=== PATIENT | female | born 1980 | race Caucasian/White ===

== ENCOUNTER 2017-07-26 18:16 | Emergency (ER) | payer MEDICAID ==
[2017-07-26 18:22] VITALS: TEMP 98.3
[2017-07-26 18:23] VITALS: BMI 45.8
[2017-07-26] MEDS ORDERED: Albuterol-Ipratrop 3 mg / 0.5 (3 ml) UD IH STA (18:42)
--- NOTE | 2017-07-26 18:48 | ED PDOC ---
Arrival/HPI - General Chief Complaint: Shortness Of Breath Time Seen by Provider: 07/26/17 18:34 Historian: Patient - History of Present Illness Narrative History of Present Illness (Text): 07/26/17 18:44 Patient with past medical history of asthma, complains of 2 day history of cough productive of green sputum and SOB, reports using her inhaler and her nebulizer prior to arrival and reports improvement of shortness of breath. Patient states that she had similar symptoms 1 month ago and was treated with antibiotics by her pmd. Otherwise: (-) fever, (-) chills, (-) chest pain, (-) dyspnea, (-) hemoptysis, (-) upper back pain, (-) travel, (-) recent prolonged immobility. Past Medical History - Provider Review Nursing Documentation Reviewed: Yes - Infectious Disease Hx of Infectious Diseases: None - Past Medical History Past Medical History: No Previous - Pulmonary Hx Asthma: Yes - Psychiatric Hx Substance Use: No - Past Surgical History Past Surgical History: No Previous - Anesthesia Hx Anesthesia: No - Suicidal Assessment Feels Threatened In Home Enviroment: No Family/Social History - Physician Review Nursing Documentation Reviewed: Yes Family/Social History: No Known Family HX Smoking Status: Never Smoked Hx Alcohol Use: No Hx Substance Use: No Allergies/Home Meds Allergies/Adverse Reactions: Allergies No Known Allergies Allergy (Verified 03/09/16 08:55) Home Medications: Home Meds Medication Instructions Recorded Confirmed Albuterol HFA [Ventolin HFA 90 1 puff IH PRN PRN 07/26/17 07/26/17 mcg/actuation (8 g)] Review of Systems - Review of Systems Constitutional: Normal. absent: Fatigue, Weight Change, Fevers ENT: Normal. absent: Hearing Changes, Sore Throat, Rhinorrhea, Sinus Congestion Respiratory: Normal, SOB, Cough, Sputum, Wheezing Cardiovascular: Normal. absent: Chest Pain, Palpitations, Edema Musculoskeletal: Normal. absent: Arthralgias, Back Pain, Neck Pain Skin: Normal. absent: Rash, Pruritis, Skin Lesions Neurological: Normal. absent: Headache, Dizziness, Focal Weakness Physical Exam - Physical Exam Narrative Physical Exam (Text): 07/26/17 18:48 GENERAL APPEARANCE: Patient is awake, alert, oriented x 3, in no acute distress. Patient speaking in full sentences, breathing is easy and unlabored. SKIN: Warm, dry; (-) cyanosis. EYES: (-) conjunctival pallor. ENMT: Mucous membranes moist. Airway patent: (-) stridor. Pharynx: (-) swelling, (-) erythema, (-) exudate. NECK: (-) tenderness, (-) stiffness, (-) lymphadenopathy. CHEST AND RESPIRATORY: (-) rhonchi, (-) rales, (-) wheezes, (-) pleural rub; breath sounds equal bilaterally. HEART AND CARDIOVASCULAR: (-) irregularity; (-) murmur, (-) gallop. ABDOMEN AND GI: Soft; (-) tenderness. EXTREMITIES: (-) deformity; (-) edema. NEURO AND PSYCH: Mental status as above. Cranial nerves grossly intact; strength symmetric. Vital Signs Temp Pulse Resp BP Pulse Ox 07/26/17 18:22 98.3 F 76 18 111/73 98 Medical Decision Making ED Course and Treatment: 07/26/17 18:46 37 yo F with past medical history of asthma, complains of 2 day history of cough productive of green sputum and SOB. Plan : - CXR - Duoneb x1 - Prednisone Uhcg (-). CXR : NAD, as read by PA. On reevaluation, patient reports improvement of her symptoms. On exam, patient is sitting comfortably in bed in no acute distress, breathing easy and unlabored. Lungs are clear to auscultation, no wheezing or rhonchi. Based on history, exam and diagnostic results plan will be for outpatient follow-up. Advised to follow up with primary care physician in 1-2 days without fail. Advised to take medication as prescribed. Return to the emergency room at any time for any new or worsening symptoms. Patient states she fully agrees with and understands discharge instructions. States that she agrees with the plan and disposition. Verbalized and repeated discharge instructions and plan. I have given the patient opportunity to ask any additional questions. - RAD Interpretation Radiology Orders: 07/26/17 18:42 CHEST TWO VIEWS (PA/LAT) [RAD] Stat - Medication Orders Current Medication Orders: Discontinued Medications Albuterol/Ipratropium (Duoneb 3 Mg/0.5 Mg (3 Ml) Ud) 3 ml IH STAT STA Stop: 07/26/17 18:43 Last Admin: 07/26/17 18:57 Dose: 3 ml Prednisone (Prednisone Tab) 40 mg PO STAT STA Stop: 07/26/17 18:43 Last Admin: 07/26/17 18:57 Dose: 40 mg - PA / MARKETING COMPLIANCE MANAGER / Resident Statement MD/DO has reviewed & agrees with the documentation as recorded. Disposition/Present on Arrival - Present on Arrival Any Indicators Present on Arrival: No History of DVT/PE: No History of Uncontrolled Diabetes: No Urinary Catheter: No History of Decub. Ulcer: No History Surgical Site Infection Following: None - Disposition Have Diagnosis and Disposition been Completed?: Yes Diagnosis: Acute bronchitis Disposition: HOME/ ROUTINE Disposition Time: 19:15 Patient Plan: Discharge Condition: STABLE Discharge Instructions (ExitCare): Acute Bronchitis (ED) Print Language: [id number] Additional Instructions: Thank you for letting us take care of you today. You were treated for acute bronchitis. The emergency medical care you received today was directed at your acute symptoms. If you were prescribed any medication, please fill it and take as directed. It may take several days for your symptoms to resolve. Return to the Emergency Department if your symptoms worsen, do not improve, or if you have any other problems. Please contact your doctor in 2 days for re-evaluation and follow up. Bring any paperwork you were given at discharge with you along with any medications you are taking to your follow up visit. Our treatment cannot replace ongoing medical care by a primary care provider (PCP) outside of the emergency department. Thank you for allowing the [facility] team to be part of your care today. If you had an X-Ray : A Radiologist will review the ED reading if any change in treatment is needed we will contact you. Prescriptions: Albuterol HFA [Ventolin HFA 90 mcg/actuation (8 g)] 2 puff IH [id number] #1 puff Albuterol 0.083% [Albuterol Sulfate 3 Ml] 3 ml IH Q4 #100 neb Guaifenesin 400 mg PO QID #20 tablet predniSONE [predniSONE Tab] 40 mg PO DAILY #8 tab Forms: [email or web address] (Belarusian), WORK NOTE
[2017-07-26 19:43] VITALS: BP 123/10; PULSE 96; RESP 18; O2SAT 98
--- NOTE | 2017-07-27 08:41 | RAD ---
HISTORY: cough COMPARISON: Comparison chest 12/22/2015 TECHNIQUE: Chest PA and lateral FINDINGS: LUNGS: No active pulmonary disease. PLEURA: No significant pleural effusion identified. No pneumothorax apparent. CARDIOVASCULAR: Normal. OSSEOUS STRUCTURES: Minor multilevel degenerative spondylosis of thoracic spine VISUALIZED UPPER ABDOMEN: Normal. OTHER FINDINGS: None. IMPRESSION: No active disease.
== END 2017-07-26 19:43 | disposition home or self-care (01) ==
LOC: ED 18:16
DX: J20.9 Acute bronchitis, unspecified (principal)

== ENCOUNTER 2018-12-08 19:25 | Emergency (ER) | payer MEDICAID | END 2018-12-08 23:16 | disposition home or self-care (01) | LOC: ED 19:25 ==

== ENCOUNTER 2019-02-10 08:52 | Emergency (ER) | payer MEDICAID ==
[2019-02-10 09:00] VITALS: BMI 48.2
[2019-02-10] MEDS ORDERED: Albuterol-Ipratrop 3 mg / 0.5 (3 ml) UD IH STA ×2 (09:36→11:32)
--- NOTE | 2019-02-10 10:07 | ED PDOC ---
Arrival/HPI - General Chief Complaint: Shortness Of Breath Time Seen by Provider: 02/10/19 09:10 Historian: Patient - History of Present Illness Narrative History of Present Illness (Text): 02/10/19 10:04 38-year-old female with a history of asthma presents today with a 3-day history of nasal congestion and cough with a 2-day history of worsening shortness of breath. Patient states since last night she has been feeling short of breath and has used her nebulizer multiple times. Patient states today symptoms worsened and has been continually using her nebulizer without improvement. Patient denies chest pain. She denies dizziness or weakness. No abdominal pain. No nausea or vomiting. Denies fevers or chills. No other complaints Past Medical History - Provider Review Nursing Documentation Reviewed: Yes Primary Care Physician: Bhargav Wagoner MD - Travel History Have you recently traveled outside [place] w/in the past 3 mons?: No - Infectious Disease Hx of Infectious Diseases: None - Past Medical History Past Medical History: No Previous - Cardiac Hx Cardiac Disorders: No - Pulmonary Hx Respiratory Disorders: Yes Hx Asthma: Yes - Neurological Hx Neurological Disorder: No - HEENT Hx HEENT Disorder: No - Renal Hx Renal Disorder: No - Endocrine/Metabolic Hx Endocrine Disorders: No - Hematological/Oncological Hx Blood Disorders: No - Integumentary Hx Dermatological Disorder: No - Musculoskeletal/Rheumatological Hx Musculoskeletal Disorders: No - Gastrointestinal Hx Gastrointestinal Disorders: No - Genitourinary/Gynecological Hx Genitourinary Disorders: No - Psychiatric Hx Psychophysiologic Disorder: No Hx Substance Use: No - Past Surgical History Past Surgical History: No Previous - Anesthesia Hx Anesthesia: No Hx Anesthesia Reactions: No Hx Malignant Hyperthermia: No - Suicidal Assessment Feels Threatened In Home Enviroment: No Family/Social History - Physician Review Nursing Documentation Reviewed: Yes Family/Social History: Unknown Family HX Smoking Status: Never Smoked Hx Alcohol Use: No Hx Substance Use: No Allergies/Home Meds Allergies/Adverse Reactions: Allergies No Known Allergies Allergy (Verified 12/08/18 19:37) Home Medications: Home Meds Medication Instructions Recorded Confirmed Albuterol HFA [Ventolin HFA 90 1 puff IH PRN PRN 07/26/17 02/10/19 mcg/actuation (8 g)] Review of Systems - Review of Systems Constitutional: absent: Fatigue, Fevers ENT: Sinus Congestion. absent: Sore Throat Respiratory: SOB, Wheezing. absent: Cough Cardiovascular: absent: Chest Pain, Palpitations Gastrointestinal: absent: Abdominal Pain, Nausea, Vomiting Genitourinary Female: absent: Dysuria, Frequency, Hematuria Musculoskeletal: absent: Arthralgias, Back Pain, Neck Pain Skin: absent: Rash, Pruritis Neurological: absent: Headache, Dizziness Psychiatric: absent: Anxiety, Depression Physical Exam Vital Signs Reviewed: Yes Vital Signs Temp Pulse Resp BP Pulse Ox 02/10/19 09:06 20 99 02/10/19 08:53 98.3 F 107 H 18 106/57 L 99 Temperature: Afebrile Blood Pressure: Normal Pulse: Regular Respiratory Rate: Normal Appearance: Positive for: Well-Appearing, Non-Toxic, Comfortable Pain Distress: None Mental Status: Positive for: Alert and Oriented X 3 - Systems Exam Head: Present: Atraumatic Mouth: Present: Moist Mucous Membranes Neck: Present: Normal Range of Motion Respiratory/Chest: Present: Wheezes, Retracting. No: Clear to Auscultation, Respiratory Distress, Accessory Muscle Use Cardiovascular: Present: Peripheal Pulses Present, Tachycardic. No: Murmurs Abdomen: No: Tenderness, Distention, Rebound, Guarding Back: Present: Normal Inspection Upper Extremity: Present: Normal ROM Lower Extremity: Present: Normal ROM Neurological: Present: GCS=15, Speech Normal Skin: Present: Warm, Dry, Normal Color. No: Rashes Psychiatric: Present: Alert, Oriented x 3 Medical Decision Making ED Course and Treatment: 02/10/19 10:08 38yr old female with hx of asthma with SOB. 02/10/19 14:21 After 2 duo nebs and Solu-Medrol 125 mg IV the patient is feeling much better. Her vital signs are stable. She is resting comfortably in the emergency room speaking in full sentences. Chest x-ray: Mild peribronchial thickening. No evidence of pneumonia Patient was started on Zithromax p.o. We will discharge the patient home with Zithromax, prednisone and albuterol for the nebulizer. Advised follow-up with a primary care physician within the next 2 days. Advised me to return if symptoms worsen persist or if new concerning symptoms develop Patient verbalizes understanding of discharge instructions and need for immediate followup. All aspects of this case were discussed the attending of record. Impression: Bronchitis, asthma Zithromax daily x4 days Prednisone daily x4 days Use nebulizer 3 times daily as needed for cough Follow-up with a primary care physician within the next 2 days Return immediately if symptoms worsen persist or if new concerning symptoms develop Reassessment Condition: Re-examined, Improved - Medication Orders Current Medication Orders: Discontinued Medications Albuterol/Ipratropium (Duoneb 3 Mg/0.5 Mg (3 Ml) Ud) 3 ml IH STAT STA Stop: 02/10/19 09:37 Methylprednisolone (Solu-Medrol) 125 mg IVP STAT STA Stop: 02/10/19 09:37 Disposition/Present on Arrival - Present on Arrival Any Indicators Present on Arrival: No History of DVT/PE: No History of Uncontrolled Diabetes: No Urinary Catheter: No History of Decub. Ulcer: No History Surgical Site Infection Following: None - Disposition Have Diagnosis and Disposition been Completed?: Yes Diagnosis: Bronchitis, Asthma Disposition: HOME/ ROUTINE Disposition Time: 13:20 Patient Plan: Discharge Condition: GOOD Discharge Instructions (ExitCare): Acute Bronchitis, Adult (DC), Asthma in Adults Additional Instructions: Zithromax daily x4 days Prednisone daily x4 days Use nebulizer 3 times daily as needed for cough Follow-up with a primary care physician within the next 2 days Return immediately if symptoms worsen persist or if new concerning symptoms develop Prescriptions: Albuterol HFA [Ventolin HFA 90 mcg/actuation (8 g)] 2 puff IH [id number] PRN #1 inhaler PRN Reason: Cough Albuterol 0.083% [Albuterol 0.083% Inhal Rosa (2.5 mg/3 ml) UD] 1 vial IH TID PRN #1 packet PRN Reason: Cough Azithromycin [Zithromax] 250 mg PO DAILY #4 tab predniSONE [predniSONE Tab] 3 tab PO DAILY #12 tab Referrals: Bhargav Wagoner MD [Primary Care Provider] - Follow up with primary Forms: [employer] (Hebrew), WORK NOTE
[2019-02-10 14:01] VITALS: BP 139/84; PULSE 95; RESP 17; TEMP 98.1; O2SAT 98
--- NOTE | 2019-02-10 14:14 | RAD ---
Date of service: 02/10/2019 HISTORY: cough/sob COMPARISON: 12/08/2018 TECHNIQUE: Chest PA and lateral views FINDINGS: LUNGS: Mild peribronchial thickening. No evidence of pneumonia PLEURA: No significant pleural effusion identified. No pneumothorax apparent. CARDIOVASCULAR: No aortic atherosclerotic calcification present. Normal cardiac size. No pulmonary vascular congestion. OSSEOUS STRUCTURES: No significant abnormalities. VISUALIZED UPPER ABDOMEN: Normal. OTHER FINDINGS: None. IMPRESSION: Mild peribronchial thickening. No evidence of pneumonia
--- NOTE | 2019-02-10 19:01 | CARD ---
APPROVED REPORT Date of service: 02/10/2019 EKG Measurement Heart [id number] <Conclusion> Sinus tachycardia Incomplete right bundle branch block Borderline ECG
== END 2019-02-10 14:49 | disposition home or self-care (01) ==
LOC: ED 08:52
DX: J45.909 Unspecified asthma, uncomplicated (principal)
CPT/HCPCS: 71046; 81025; 93005; 96374; 99284; J2930